=== PATIENT | female | born 1935 | race Caucasian/White ===

== ENCOUNTER 2019-09-03 14:43 | Emergency (ER) | payer MEDICARE, OTHER ==
[2019-09-03] MEDS ORDERED: Adacel (T-DAP) 0.5 ML SYRINGE ONE (15:14)
--- NOTE | 2019-09-03 16:44 | CT ---
BRAIN CT WITHOUT IV CONTRAST: Date: 09/03/19 HISTORY: Head injury. FINDINGS: No focal mass or midline shift. No intra or extra-axial hemorrhage. Mild atrophy and chronic white ma tter ischemic change. Status post nasal sinus surgery with some sinus mucosal disease. IMPRESSION: No significant acute intracranial process. No mass or bleed. Status post nasal sinus surgery with min imal sinus mucosal disease. POS: [facility]
== END 2019-09-03 16:00 | disposition home or self-care (01) ==
LOC: MADERS 14:43
DX: S80.212A Abrasion, left knee, initial encounter (principal); I10 Essential (primary) hypertension; E03.9 Hypothyroidism, unspecified; G50.0 Trigeminal neuralgia; W01.0XXA Fall on same level from slipping, tripping and stumbling without subsequent striking against object, initial encounter
CPT/HCPCS: 70450; 90471; 90715